=== PATIENT | male | born 1985 | race Caucasian/White ===

== ENCOUNTER 2022-11-09 14:08 | Emergency (ER) | payer SELFPAY ==
[2022-11-09 14:37] VITALS: BP 146/80; PULSE 82
[2022-11-09] MEDS ORDERED: Diphtheria,Pertussis(Acell),Tetanus Vaccine 0.5 ML Syringe IM ONE (14:39)
[2022-11-09] MEDS ORDERED: Acetaminophen 325 MG Tab PO ONE (14:39)
[2022-11-09] MEDS ORDERED: Lidocaine/Epineph/Tetracaine 3 ML Syringe TOP ONE (14:39)
[2022-11-09] MEDS ORDERED: Lidocaine 1% PF 2 ML SDV INJECT ONE (14:52)
[2022-11-09] MEDS ORDERED: Lidocaine 1% 5 ML VIAL ONE (14:53)
== END 2022-11-09 15:34 | disposition home or self-care (01) ==
LOC: MW.ED 14:08
DX: S61.211A Laceration without foreign body of left index finger without damage to nail, initial encounter (principal); Z23 Encounter for immunization; W27.2XXA Contact with scissors, initial encounter
CPT/HCPCS: 12001; 90471; 90715; 99283; A9270; J3490